=== PATIENT | male | born 1975 | race African-American/Black ===

== ENCOUNTER 2022-03-07 20:43 | Emergency (ER) | payer OTHER ==
[~2022-03-07] VITALS: Ht 180.3 cm; Wt 134.0 kg
[2022-03-07] MEDS ORDERED: VISCOUS LIDOCAINE 2% 15 ML UDC MM ONE (21:45)
[2022-03-07] MEDS ORDERED: MAGNESIUM/ALUMINUM HYDROXIDE/SIMETHICONE 30ML UDC PO ONE (21:45)
[2022-03-07 22:49] LABS: EOSINOPHILS % 0.6 % (0.0-5.0); HEMATOCRIT. 36.7 % (42.0-52.0); HEMOGLOBIN. 11.9 g/dL (14.0-18.0); LYMPHOCYTES % 20.3 % (20.0-50.0); MEAN CORPUSCULAR HEMOGLOBIN 30.3 pg (28.0-32.0); MEAN CORPUSCULAR VOLUME 93.4 fL (80.0-94.0); MONOCYTES % 5.1 % (2.0-8.0); PLATELET 212 x1000/uL (130-400); RED BLOOD CELL COUNT 3.93 mill/uL (4.7-6.1); RED CELL DISTRIBUTION WIDTH 14.2 % (11.6-14.6)
[2022-03-07 23:08] LABS: CHLORIDE 109 mEq/L (98-107)
[2022-03-07 23:22] LABS: ETHANOL BLOOD < 10 mg/dL
[2022-03-07] MEDS ORDERED: ASPIRIN 81MG TABLET PO NR (23:30)
[2022-03-07] MEDS ORDERED: FUROSEMIDE 40MG/4ML VIAL IV NR (23:30)
[2022-03-07] MEDS ORDERED: NITROGLYCERIN OINT 1GM/INCH UDPKT TD NR (23:30)
[2022-03-08 02:06] VITALS: BP 191/132
== END 2022-03-08 02:07 | disposition left against medical advice (07) ==
LOC: ER 20:43
DX: R07.89 Other chest pain (principal); I11.0 Hypertensive heart disease with heart failure; I50.9 Heart failure, unspecified; R94.31 Abnormal electrocardiogram [ECG] [EKG]
CPT/HCPCS: 36415; 71045; 80053; 80320; 83880; 84484; 85025; 93005; 96374; 99291; J1940; G0480